=== PATIENT | male | born 1965 | race Caucasian/White ===

== ENCOUNTER 2016-10-24 04:43 | Emergency (ER) | payer BC ==
[~2016-10-24] VITALS: Ht 177.8 cm; Wt 95.5 kg
[2016-10-24 04:50] VITALS: TEMP 36.5; Ht 177.8 cm; Wt 95.5 kg
[2016-10-24] MEDS ORDERED: MoRPHine SULFATE 4 MG/ML 1 ML CARP\\VIAL IV STA ×2 (04:53→05:36)
[2016-10-24] MEDS ORDERED: ONDANSETRON INJ 2 MG/ML 2 ML VIAL IV STA (04:53)
--- NOTE | 2016-10-24 05:00 | EMERGENCY ROOM VISIT NOTE ---
History Report prepared by Karoline: Jennifer Pratt Under the Supervision of: Dr. Jean Marie M.D. First contact with patient: 04:49 Chief Complaint: SHOULDER DISLOCATION Stated Complaint: LEFT SHOULDER PAIN,POSSIBLE DISLOCATION History of Present Illness The patient is a 51 year old male who presents to the Emergency Room with complaints of persistent left shoulder pain that began around 0400. He currently rates his discomfort as a 10/10 in severity. The patient states that this morning he slipped on the stairs and jammed his left shoulder forward. He denies any previous injury to his left shoulder. The patient denies hitting his head. He denies any neck pain, chest pain, abdominal pain, back pain, or shortness of breath. The patient denies any other medical problems. Source of History: patient, spouse/significant other Onset: 0400 Position: shoulder (left) Symptom Intensity: 10/10 Timing: other (persistent) Associated Symptoms: No SOB, No abdominal pain, No back pain, No chest pain , No neck pain Review of Systems See HPI for pertinent positives & negatives. A total of 10 systems reviewed and were otherwise negative. Past Medical & Surgical Surgical Problems: (1) S/P ACL repair Old medical records were reviewed. Nurse's notes were reviewed and I agree with. Family History FH: heart disease FHx: cancer Social History Smokeless Tobacco Use: Yes Alcohol Use: occasionally Marital Status: Housing Status: lives with family Occupation Status: employed Current/Historical Medications Scheduled PRN Oxycodone Immediate Rel Tab (Roxicodone Ir), 1-2 TAB PO Q4H PRN for Severe Pain Allergies Coded Allergies: No Known Allergies (Unverified , 10/24/16) Physical Exam Vital Signs Date Time Temp Pulse Resp B/P Pulse Ox O2 Delivery O2 Flow Rate FiO2 10/24/16 06:18 65 20 141/81 97 10/24/16 05:22 65 20 123/69 97 Room Air 10/24/16 04:50 36.5 68 20 131/85 98 Room Air Physical Exam General: Well developed well nourished, uncomfortable appearing middle aged male complaining of shoulder pain, breathing comfortably on room air. Normal speech HEENT: Normal cephalic atraumatic. Pupils are equal round and reactive to light. Extraocular movements are intact. Oropharynx is pink with moist mucous membranes. No swelling of the mouth lips or tongue. Neck: Supple with a midline trachea. No meningeal signs or stiffness, no JVD or bruits. No Stridor. Chest: Clear to auscultation bilaterally. No wheezes or rhonchi. No increased work of breathing. Heart: regular rate and rhythm. Abdomen: Soft nontender, nondistended without rebound guarding or rigidity. Extremities: Left shoulder is anteriorly dislocated. 2+ distal pulses in the upper extremities. Normal motor and sensation with limited range of motion of left shoulder. No cyanosis clubbing or edema. No calf tenderness or assymetry Spine/Back. Non tender to palpation. No CVA tenderness Skin: Good turgor without rashes. Neurologic exam: Cranial nerves two through 12 are intact. Motor and sensation are intact and symmetrical throughout. Medical Decision & Procedures ER Provider Diagnostic Interpretation: Left shoulder x-ray per my interpretation reveals anterior shoulder dislocation no fracture. Post reduction left shoulder x-ray: no fracture, dislocation has been reduced. There may be a joint effusion, as head is low lying. Medications Administered Medications (Trade) Dose Ordered Sig/Drake Route Start Time Stop Time Status Last Admin Dose Admin Morphine Sulfate (MoRPHine SULFATE INJ) 4 mg NOW STAT IV 10/24/16 04:53 10/24/16 04:55 DC 10/24/16 05:00 4 MG Ondansetron HCl (Zofran Inj) 4 mg NOW STAT IV 10/24/16 04:53 10/24/16 04:55 DC 10/24/16 04:59 4 MG Miscellaneous Information (Nursing Verbal Med Order) 1 ea ONE ONCE N/A 10/24/16 05:30 10/24/16 05:31 DC 10/24/16 05:16 1 EA Procedure Anterior Shoulder Dislocation Reduction Indication: anterior shoulder dislocation Verbal consent obtained. Risks and benefits were explained with the usual customary discussion. A time out was taken. Neurovascular examination before the procedure revealed intact. The left shoulder glenohumeral dislocation was reduced by placing the patient prone and applying gentle downward inline traction on the humerus, with the elbow flexed at 90 degrees, while scapula manipulation was applied. This resulted in an easy reduction without complication. Neurovascular examination after the procedure revealed intact, specifically axillary nerve distribution was intact. The patient had significant pain relief and tolerated the procedure well. ED Course 0450: Past medical records reviewed. The patient was evaluated in room A2, and a complete history and physical examination were performed. 0453: Ordered Zofran Inj 4 mg IV, Morphine Sulfate 4 mg IV. 0512: I reduced the patients shoulder at this time. See procedure note for further detail. 0536: Ordered Morphine Sulfate 4 mg IV. 0601: I reevaluated the patient and he is feeling better. I discussed the exam findings with him and I discussed the treatment plan. He verbalized complete understanding and agreement. He is ready to go home. Medical Decision Differentials include, but are not limited to; shoulder dislocation, fracture, musculoskeletal. This patient comes in as described above he injured his left shoulder and clinically has an anterior shoulder dislocation. He is neurologically neurovascular intact it is limitation secondary to dislocation. IV access was established and the opposite arm. He was given morphine 4 mg IV and Zofran 4 mg IV. He did require additional morphine 4 mg IV. He was gently reduce as outlined above using the Buchanan technique. The patient tolerated this well without difficulties or complications. a sling was placed after reduction and shoulder was square and clinically relocated. He was neurovascularly neurologically intact in particular the axillary nerve distribution. He will use ibuprofen for pain. For breakthrough pain, use OxyIR 5 mg, one or 2 pills every 4 hours as needed. He was warned that this can make him drowsy and do not take before drinking, driving, working. Follow-up with orthopedist this week for recheck return if : increasing pain, worsening symptoms, any new problems concerns. The patient was happy the plan and discharged home with his driving. Impression Primary Impression: Anterior shoulder dislocation Scribe Attestation The scribe's documentation has been prepared under my direction and personally reviewed by me in its entirety. I confirm that the note above accurately reflects all work, treatment, procedures, and medical decision making performed by me. Departure Information Dispostion Home / Self-Care Prescriptions Oxycodone Immediate Rel Tab (ROXICODONE IR) 5 Mg Tab 1-2 TAB PO Q4H Y for Severe Pain, #24 TAB Prov: Jean Marie M.D. 10/24/16 Referrals No Doctor, Assigned (PCP) Forms HOME CARE DOCUMENTATION FORM, IMPORTANT VISIT INFORMATION, WORK / SCHOOL INSTRUCTIONS Patient Instructions My [facility] Additional Instructions Rest. Use sling. Avoid reaching or stretching Ice intermittently. Use ibuprofen 400 mg every 6 hours, take with food For more severe pain, use OxyIR 5 mg, one or 2 pills every 4-6 hours as needed OxyIR may make you drowsy and do not take before drinking, driving, working Return if: Increasing pain, numbness or weakness, fever chills, any new problems or concerns. Follow-up with Dr. Rousseau this week for recheck
[2016-10-24] MEDS ORDERED: NURSING VERBAL MED ORDER ONE (05:30)
[2016-10-24] MEDS ORDERED: OXYC1TAB3 PO (05:55)
[2016-10-24 06:18] VITALS: BP 141/81; PULSE 65; O2SAT 97
--- NOTE | 2016-10-24 06:55 | DIAGNOSTIC IMAGING REPORT ---
SHOULDER MIN 2 VIEWS ROUTINE CLINICAL HISTORY: S/P REDUCTION dislocation COMPARISON: 5:21 AM same date DISCUSSION: Anatomic alignment status post closed reduction There is no evidence for soft tissue swelling. IMPRESSION: Anatomic alignment status post closed reduction Electronically signed by: Bay Smith M.D. 10/24/2016 6:53 AM Dictated Date/Time: 10/24/2016 6:53 AM
--- NOTE | 2016-10-24 07:00 | DIAGNOSTIC IMAGING REPORT ---
SHOULDER 1 VIEW CLINICAL HISTORY: EVAL FOR TRAUMA trauma COMPARISON: None. DISCUSSION: Anterior dislocation. All remaining osseous structures are unremarkable. There is no evidence for soft tissue swelling. IMPRESSION: Anterior dislocation Electronically signed by: Bay Smith M.D. 10/24/2016 6:59 AM Dictated Date/Time: 10/24/2016 6:57 AM
== END 2016-10-24 06:24 | disposition home or self-care (01) ==
LOC: C.EDB 04:45 → C.EDA 06:24
DX: S43.005A Unspecified dislocation of left shoulder joint, initial encounter (principal); W18.40XA Slipping, tripping and stumbling without falling, unspecified, initial encounter; Z98.890 Other specified postprocedural states

== ENCOUNTER 2025-01-28 07:59 | Observation (INO) ==
[2025-01-28] MEDS: MoRPHine SULFATE 10 MG/ML CARP/VIAL IV STA (09:19)
[2025-01-28] MEDS: ONDANSETRON INJ 2 MG/ML 2 ML VIAL IV STA (09:19)
[2025-01-28 09:35] LABS: Basophils # (auto) 0.05 K/uL (0.00-0.20); Basophils % (auto) 0.6 %; Eosinophils # (auto) 0.07 K/uL (0.00-0.50); Eosinophils % (auto) 0.9 %; Hematocrit (blood only) 46.6 % (42.0-52.0); Hemoglobin 15.1 g/dl (14.0-18.0); Immature Granulocytes # (auto) 0.05 K/uL (0.01-0.20); Immature Granulocytes % (auto) 0.6 %; Lymphocytes # (auto) 1.85 K/uL (1.20-3.40); Lymphocytes % (auto) 22.7 %; Mean Corpuscular Hemoglobin 28.2 pg (25.0-34.0); Mean Corpuscular Hgb Conc 32.4 g/dL (32.0-36.0); Mean Corpuscular Volume 86.9 fL (80.0-100.0); Mean Platelet Volume 8.8 fL (9.4-12.4); Monocytes # (auto) 1.02 K/uL (0.11-0.59); Monocytes % (auto) 12.5 %; Neutrophils # (auto) 5.12 K/uL (1.40-6.50); Neutrophils % (auto) 62.7 %; Platelet Count 250 K/uL (130-400); RDW Standard Deviation 44.3 fL (36.4-46.3); Red Blood Count 5.36 M/uL (4.70-6.10); White Blood Count 8.16 K/ul (4.8-10.8)
[2025-01-28] MEDS: MoRPHine SULFATE 4 MG/ML 1 ML CARP\\VIAL IV PRN (09:40)
--- NOTE | 2025-01-28 09:50 | Emergency Department Note ---
Impression & Plan Lower back pain, Sciatica, Lumbar disc herniation, Failure of outpatient treatment ED Provider Note NAME: FARSHAD TRUJILLO Jr AGE: 59 SEX: M : 1965 ARRIVES VIA: Walk-In INFORMANT: [Patient] ED PROVIDER(S): [Rich Levine MD] CHIEF COMPLAINT: Back pain HISTORY OF PRESENT ILLNESS: Patient is a 59-year-old male who states has had 3 weeks of right lower back pain. He was doing PT and muscle relaxers and Percocet as needed--things were okay. Yesterday towards the later part of the day, he thinks he pulled the back again and now, the pain is unbearable and not responding to his typical medications. The pain radiates down his right leg to his foot. He cannot get comfortable in any position. The patient did have an PA a month ago. He is on antiplatelet therapy. He has had no issues with his back previously. PMHx/PSHx/Social Hx: See Below PHYSICAL EXAM: GENERAL: Patient is in moderate distress from pain. HEENT: No acute trauma, normocephalic atraumatic, mucous membranes moist, no nasal congestion. EXTREMITIES: No cyanosis, full range of motion of all the joints without pain or difficulty. NEUROLOGIC: Oriented x 3, no acute motor or sensory deficits, no focal weakness. 2/4 patellar and Achilles reflexes bilaterally. The right great toe strength with dorsiflexion appears weaker compared to the left. SKIN: No jaundice, no diaphoresis. Back: He has soreness to palpate the right lumbar musculature and this muscle region does seem in spasm. No midline discomfort. DIFFERENTIAL DIAGNOSIS: Sprain, strain, nerve impingement, disc herniation, sciatica, fracture, hematoma, among others. EMERGENCY DEPARTMENT PROCEDURES: MEDICAL DECISION MAKING: There is no leukocytosis or concerning anemia. There is a normal platelet count. No renal failure or significant electrolyte abnormality. Lumbar spine MRI does show a disc herniation on the right impinging the exiting nerve root. The level was at L4-L5. On exam, the patient's right big toe dorsiflexion seemed weaker than the left. His reflexes were intact in the right lower extremity. He was very uncomfortable though and had a hard time sitting still. The patient was given IV morphine, IV Toradol, IV Zofran. He was eventually given IV Dilaudid for additional pain control. He received IV Decadron. The patient is somewhat improved compared to when he first arrived but does not feel safe with discharge home. He is already on narcotics outpatient and muscle relaxers outpatient and has not been able to function. I did speak with the patient, I did speak with case management, the on-call hospitalist was consulted. The patient requires admission for pain control, possibly an evaluation by pain management and/or spinal surgery. Prior/Outside records/notes reviewed: None Imaging/x-ray results per my interpretation: Chronic Medical/Social conditions affecting care: Recent PA. Care/Management discussed with: Case management, the on-call hospitalist. Level of care consideration(s): After review of the information above and other included data: --I believe the patient requires escalation of care to admission DISPOSITION: Admission Past Med/Surg History Problem List (Updated 01/28/25 @ 15:23 by Rich Levine MD) Failure of outpatient treatment (Acute) Lumbar disc herniation (Acute) Sciatica (Acute) Lower back pain (Acute) Lumbar disc herniation with radiculopathy Medical History Presence of drug-eluting stent in right coronary artery History of PA (myocardial infarction) Acute right-sided low back pain Degenerative joint disease of left hip Encounter for pre-operative examination Right knee meniscal tear Osteoarthritis History of clenching of mandible Surgical History History of arthroscopy LEFT KNEE X 2 (ACL RECONSTRUCTION) LEFT KNEE HARDWARE REMOVED RT KNEE SCOPE History of herniorrhaphy INGUINAL ( AN ) History of tooth extraction Family History Other No significant family history Social History Smoking Status: Never smoker Tobacco Type: Smokeless Tobacco (Dip or Chew) Second Hand Exposure: No; Do You Dip or Chew Tobacco: Yes (1-2 CANS PER WEEK -- NONE AM DOS, ADVISED); Hx Alcohol Use: Yes Alcohol type: beer Hx Substance Use: No Preferred Language: Bulgarian Communication Ability: Effective [employer] Crm Developer Required: No Beliefs That Will Affect Care: None Current Living Situation: Spouse current occupational status: employed 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 Feels Safe at Home: Yes Assistive Devices: Glasses Allergies Allergies Allergy/AdvReac Type Severity Reaction Status Date / Time orange Allergy Intermediate Any fresh Unverified 01/28/25 11:50 fruit will cause tongue to itch Home Meds Home Medications Medication Instructions Recorded Confirmed acetaminophen 500 mg tablet 1,000 mg PO QID PRN Pain 08/30/20 01/28/25 (Tylenol Extra Strength) aspirin 81 mg tablet,delayed 81 mg PO QAM 01/28/25 01/28/25 release atorvastatin 80 mg tablet 80 mg PO QAM 01/28/25 01/28/25 cyclobenzaprine 10 mg tablet 10 mg PO TID PRN MUSCLE SPASMS 01/28/25 01/28/25 metoprolol succinate 25 mg 12.5 mg PO QAM 01/28/25 01/28/25 tablet,extended release 24 hr oxycodone-acetaminophen 5 mg-325 1 tab PO Q8H PRN Pain 01/28/25 01/28/25 mg tablet prednisone 10 mg tablet See Rx Instructions .Route .COMPLEX 01/28/25 01/28/25 ticagrelor 90 mg tablet 90 mg PO BID 01/28/25 01/28/25 Results & Data (ED) Vital Signs Vital Signs - 24 hr 01/28/25 08:03 01/28/25 11:47 01/28/25 13:00 Temperature 36.7 C Temperature Source Temporal Artery Scan Pulse Rate 88 Pulse Rate [Right Brachial] 74 75 Pulse Rhythm [Right Brachial] Regular Regular Pulse Strength [Right Brachial] Normal Normal Respiratory Rate 20 16 18 Respiratory Effort / Characteristics Non-Labored Spontaneous Non-Labored Non-Labored Respiratory Depth Normal Normal Normal Respiratory Pattern Regular Regular Blood Pressure 139/77 Blood Pressure [Right Arm] 141/92 H 133/90 Blood Pressure Mean 97 Blood Pressure Mean [Right Arm] 108 104 Blood Pressure Position [Right Arm] Lying Lying Pulse Oximetry 97 92 93 Oxygen Delivery Method Room Air Room Air Room Air Sepsis Recent Fever Within 48 Hours No Sepsis New/Unexplained Change in Mental Status No Sepsis Action Taken by Nursing No Action Required Home Medications Current Medication List: was personally reviewed by me Laboratory Data Attestation: I reviewed the patient's lab results. 01/28/25 09:15 01/28/25 09:15 Lab Results 01/28/25 Range/Units 09:15 WBC 8.16 (4.8-10.8) K/ul RBC 5.36 (4.70-6.10) M/uL Hgb 15.1 (14.0-18.0) g/dl Hct 46.6 (42.0-52.0) % MCV 86.9 (80.0-100.0) fL MCH 28.2 (25.0-34.0) pg MCHC 32.4 (32.0-36.0) g/dL RDW Std Deviation 44.3 (36.4-46.3) fL RDW Coeff of Catina 14.0 (11.5-14.5) % Plt Count 250 (130-400) K/uL MPV 8.8 L (9.4-12.4) fL Immature Gran % (Auto) 0.6 % Neut % (Auto) 62.7 % Lymph % (Auto) 22.7 % [place] % (Auto) 12.5 % Eos % (Auto) 0.9 % Baso % (Auto) 0.6 % Neut # (Auto) 5.12 (1.40-6.50) K/uL Lymph # (Auto) 1.85 (1.20-3.40) K/uL [place] # (Auto) 1.02 H (0.11-0.59) K/uL Eos # (Auto) 0.07 (0.00-0.50) K/uL Baso # (Auto) 0.05 (0.00-0.20) K/uL Immature Gran # (Auto) 0.05 (0.01-0.20) K/uL Sodium 137 (136-145) mmol/L Potassium 4.5 (3.5-5.1) mmol/L Chloride 103 (98-107) mmol/L Carbon Dioxide 28 (21-32) mmol/L Anion Gap 6 (3-11) BUN 21 (6-23) mg/dl Creatinine 0.85 (0.6-1.4) mg/dl Est Cr Clr Drug Dosing Not Reportable eGFR 99.48 BUN/Creatinine Ratio 24.7 H (10-20) Glucose 101 H (70-99(Fasting)) mg/dl Calcium 9.3 (8.6-10.3) mg/dl Administered Medications Morphine Sulfate (Morphine Sulfate 4 Mg/Ml 1 Ml Carp\Vial) 4 mg IV Q15M PRN PRN Reason: Pain Stop: 02/11/25 09:09 Last Admin: 01/28/25 09:40 Dose: 4 mg Documented By: HYACINTH Discontinued Medications Dexamethasone Sodium Phosphate (DexamethasonePf 10 Mg/Ml Vial) 10 mg IV NOW ONE Stop: 01/28/25 13:10 Last Admin: 01/28/25 13:41 Dose: 10 mg Documented By: HEENA Gadobutrol (Gadobutrol 65ml Vial) 8.5 ml IV ONCE ONE Stop: 01/28/25 12:16 Last Admin: 01/28/25 12:16 Dose: 8.5 ml Documented By: TETE Hydromorphone HCl (Hydromorphone Inj 1 Mg/Ml Syringe) 1 mg IV NOW STA Stop: 01/28/25 10:51 Last Admin: 01/28/25 11:07 Dose: 1 mg Documented By: HEENA Hydromorphone HCl (Hydromorphone Inj 0.5 Mg/0.5 Ml Syr) 0.5 mg IV NOW STA Stop: 01/28/25 13:10 Last Admin: 01/28/25 13:41 Dose: 0.5 mg Documented By: HEENA Ketorolac Tromethamine (Ketorolac Tromethamine 15 Mg/Ml Vial) 15 mg IV NOW STA Stop: 01/28/25 10:52 Last Admin: 01/28/25 11:06 Dose: 15 mg Documented By: HEENA Morphine Sulfate (Morphine Sulfate 10 Mg/Ml Carp/Vial) 6 mg IV NOW STA Stop: 01/28/25 09:11 Last Admin: 01/28/25 09:19 Dose: 6 mg Documented By: HYACINTH Ondansetron HCl (Ondansetron Inj 2 Mg/Ml 2 Ml Vial) 4 mg IV NOW STA Stop: 01/28/25 09:12 Last Admin: 01/28/25 09:19 Dose: 4 mg Documented By: HYACINTH Imaging Data Radiologist's Impression: Lumbar Spine MRI 01/28/25 09:10 MR lumbar spine wo/w con CLINICAL HISTORY: right back pain, down leg, thinners. COMPARISON: X-ray of 01/15/2025 TECHNIQUE: Multiplanar, multi sequence MRI of the lumbar spine was performed without intravenous contrast. FINDINGS: Conus medullaris terminates normally at L1. No fracture or subluxation. There is diffuse degenerative disc disease and lower lumbar facet and ligamentum flavum hypertrophy. L1-2: No significant disc bulge or central canal or neural foraminal narrowing seen. L2-3: There is a mild disc bulge and mild ligamentum flavum and facet hypertrophy. The disc bulge mildly effaces the left lateral recess without significant central canal narrowing. No significant neural foraminal narrowing. L3-4: There is a mild right paracentral disc bulge which mildly effaces the right lateral recess. No significant central canal narrowing otherwise. There is no significant neural foraminal narrowing. L4-5: There is a right lateral foraminal disc bulge/extrusion which likely causes mass effect on the exiting right nerve root at that level. There is some mild adjacent likely inflammatory enhancement. There is moderate right neural foraminal narrowing. No significant central canal narrowing or left neural foraminal narrowing. L5-S1: There is a mild right paracentral disc bulge which mildly effaces the right lateral recess. No significant central canal narrowing otherwise. No significant neural foraminal narrowing. No other abnormal enhancement seen. No epidural mass or hematoma. IMPRESSION: 1. L4-5 lateral right foraminal disc bulge/extrusion likely causes mass effect on the exiting right nerve root at that level. 2. Lumbar degenerative findings as described. ACT 112: Negative or not required by law. The above report was generated using voice recognition software. It may contain grammatical, syntax or spelling errors. Electronically signed by: Manuel Altamirano M.D. 01/28/2025 12:38 PM Discharge Plan Visit Data Chief Complaint: Back Injury/Pain Stated Complaint: EXTREME PAIN FORM BACK INJURY ED Provider: Rich Levine Discharge Problem: Lower back pain, Sciatica, Lumbar disc herniation, Failure of outpatient treatment Patient Disposition: Admitted As Inpatient Condition: Fair Forms Stand Alone Forms: [email or web address] Prescriptions Prescriptions: No Action acetaminophen [Tylenol Extra Strength] 500 mg Tablet 1,000 mg PO QID PRN (Reason: Pain) cyclobenzaprine 10 mg tablet 10 mg PO TID PRN (Reason: MUSCLE SPASMS) atorvastatin 80 mg tablet 80 mg PO QAM prednisone 10 mg tablet See Rx Instructions .ROUTE .COMPLEX Rx Instructions: Start Date 01/20/25 x10 day supply: TAKE 50mg by mouth once daily x 2 DAYS, 40mg x 2 days, 30mg x 2 days, 20mg x 2 days, then 10mg x 2 days aspirin 81 mg Tablet,Delayed Release (Dr/Ec) 81 mg PO QAM oxycodone-acetaminophen 5-325 mg tablet 1 tab PO Q8H PRN (Reason: Pain) metoprolol succinate 25 mg tablet extended release 24 hr 12.5 mg PO QAM ticagrelor 90 mg tablet 90 mg PO BID Referrals Referrals: Nic Magdaleno MD [Primary Care Provider] - Discharge Problem: Lower back pain Qualifiers: Chronicity: unspecified Back pain laterality: right Sciatica presence: with sciatica Sciatica laterality: sciatica of right side Qualified Code(s): M54.41 - Lumbago with sciatica, right side Sciatica Qualifiers: Laterality: right Qualified Code(s): M54.31 - Sciatica, right side
[2025-01-28 09:51] LABS: Anion Gap 6 (3-11); BUN Creatinine Ratio 24.7 (10-20); Blood Urea Nitrogen 21 mg/dl (6-23); Calcium 9.3 mg/dl (8.6-10.3); Carbon Dioxide 28 mmol/L (21-32); Chloride 103 mmol/L (98-107); Glucose 101 mg/dl (70-99(Fasting)); Potassium 4.5 mmol/L (3.5-5.1); Sodium 137 mmol/L (136-145)
[2025-01-28] MEDS: KETOROLAC TROMETHAMINE 15 MG/ML VIAL IV STA (11:06)
[2025-01-28] MEDS: HYDROmorphone INJ 1 MG/ML SYRINGE IV STA (11:07)
[2025-01-28] MEDS: GADOBUTROL 65ML VIAL IV ONE (12:16)
--- NOTE | 2025-01-28 12:41 | Magnetic Resonance Report ---
MR lumbar spine wo/w con CLINICAL HISTORY: right back pain, down leg, thinners. COMPARISON: X-ray of 01/15/2025 TECHNIQUE: Multiplanar, multi sequence MRI of the lumbar spine was performed without intravenous cont rast. FINDINGS: Conus medullaris terminates normally at L1. No fracture or subluxation. There is diffuse de generative disc disease and lower lumbar facet and ligamentum flavum hypertrophy. L1-2: No significant disc bulge or central canal or neural foraminal narrowing seen. L2-3: There is a mild disc bulge and mild ligamentum flavum and facet hypertrophy. The disc bulge mil dly effaces the left lateral recess without significant central canal narrowing. No significant neura l foraminal narrowing. L3-4: There is a mild right paracentral disc bulge which mildly effaces the right lateral recess. No significant central canal narrowing otherwise. There is no significant neural foraminal narrowing. L4-5: There is a right lateral foraminal disc bulge/extrusion which likely causes mass effect on the exiting right nerve root at that level. There is some mild adjacent likely inflammatory enhancement. There is moderate right neural foraminal narrowing. No significant central canal narrowing or left ne ural foraminal narrowing. L5-S1: There is a mild right paracentral disc bulge which mildly effaces the right lateral recess. No significant central canal narrowing otherwise. No significant neural foraminal narrowing. No other abnormal enhancement seen. No epidural mass or hematoma. IMPRESSION: 1. L4-5 lateral right foraminal disc bulge/extrusion likely causes mass effect on the exiting right n erve root at that level. 2. Lumbar degenerative findings as described. ACT 112: Negative or not required by law. The above report was generated using voice recognition software. It may contain grammatical, syntax o r spelling errors. Electronically signed by: Manuel Altamirano M.D. 01/28/2025 12:38 PM
--- NOTE | 2025-01-28 13:39 | History & Physical Report ---
Date of Service January 28, 2025 Assessment & Plan (1) Lumbar disc herniation with radiculopathy: (2) History of VT (myocardial infarction): (3) Presence of drug-eluting stent in right coronary artery: Plan 59 year old male with PMH significant for bicuspid aortic valve, generalized osteoarthritis, and recent VT s/p stent placement in distal RCA (December 2024) who presents to the ED on 01/28/2025 with worsening back pain. Lumbar disc herniation with radiculopathy Initial injury 3 weeks ago while lifting and acute worsening overnight due to leg cramping Lumbar MRI revealed L4-5 lateral right foraminal disc bulge/extrusion likely causes mass effect on the exiting right nerve root at that level Received decadron and opioids in the ED with some relief Patient is not interested in surgery at this time Discussed with pain management who would only consider a steroid injection when he is safely off DAPT Will manage conservatively with lidocaine patch, IV tylenol, IV dilaudid, medrol dose pack (and PPI), and trial of gabapentin Follow up with pain management outpatient Recent VT s/p SJ in RCA Continue Brilinta, baby aspirin, metoprolol, atorvastatin DVT Prophylaxis: SCDs Code Status: FULL CODE - As per discussion at bedside with the patient. PCP: Nic Magdaleno Disposition: admit to med surg Patient seen in collaboration with Dr Vargas. Please see addendum. I spent a total of 60 minutes coordinating, documenting and providing care for this patient excluding time spent in the performance of separately billed services or time spent by another provider/QHP. Admission and Anticipated Discharge Date Admission Date: 01/28/2025 History of Present Illness Chief Complaint: back pain Primary Care Provider: Nic Magdaleno MD 59 year old male with PMH significant for bicuspid aortic valve, generalized osteoarthritis, and recent VT s/p stent placement in distal RCA (December 2024) who presents to the ED on 01/28/2025 with worsening back pain. Patient reports he injured his back approximately 3 weeks ago while doing some heavy lifting. He notes pain in his right buttocks and hip with radiculopathy down his right leg into his toes. He reports he was able to see a chiropractor, which helped for a few days. The pain progressively worsened until he was using crutches to ambulate because he had such significant right leg burning pain, which prompted him to seek evaluation in our ED on 01/16/2025. He was discharged on oxycodone, cyclobenzaprine, and prednisone. He had minimal improvement on these medications, which prompted him to see his PCP on 01/20/2025 who prescribed PT, percocet, and more prednisone and cyclobenzaprine. Shawna was able to attend one PT session and was feeling better until last night. Around 0300 he reports he had a leg cramp which caused his back to go out and debilitating pain. His notes he was extremely diaphoretic. He returned to our ED today because of this acute worsening of his ongoing back pain. He reports he is feeling better and pain is currently 6/10. He denies fevers, chills, chest pain, SOB, abdominal pain, N/V/D, dysuria, incontinence. Notes weakness related to the burning right leg pain for which he is using crutches. Allergies Allergy/AdvReac Type Severity Reaction Status Date / Time orange Allergy Intermediate Any fresh Unverified 01/28/25 11:50 fruit will cause tongue to itch Home Medications Medication Instructions Recorded Confirmed Type acetaminophen 500 mg tablet 1,000 mg PO QID PRN Pain 08/30/20 01/28/25 History (Tylenol Extra Strength) aspirin 81 mg tablet,delayed 81 mg PO QAM 01/28/25 01/28/25 History release atorvastatin 80 mg tablet 80 mg PO QAM 01/28/25 01/28/25 History cyclobenzaprine 10 mg tablet 10 mg PO TID PRN MUSCLE SPASMS 01/28/25 01/28/25 History metoprolol succinate 25 mg 12.5 mg PO QAM 01/28/25 01/28/25 History tablet,extended release 24 hr oxycodone-acetaminophen 5 mg-325 1 tab PO Q8H PRN Pain 01/28/25 01/28/25 History mg tablet prednisone 10 mg tablet See Rx Instructions .Route .COMPLEX 01/28/25 01/28/25 History ticagrelor 90 mg tablet 90 mg PO BID 01/28/25 01/28/25 History Past Med/Surg History Problem List (Updated 01/28/25 @ 15:23 by Rich Levine MD) Failure of outpatient treatment (Acute) Lumbar disc herniation (Acute) Sciatica (Acute) Lower back pain (Acute) Lumbar disc herniation with radiculopathy Medical History Presence of drug-eluting stent in right coronary artery History of VT (myocardial infarction) Acute right-sided low back pain Degenerative joint disease of left hip Encounter for pre-operative examination Right knee meniscal tear Osteoarthritis History of clenching of mandible Surgical History History of arthroscopy LEFT KNEE X 2 (ACL RECONSTRUCTION) LEFT KNEE HARDWARE REMOVED RT KNEE SCOPE History of herniorrhaphy INGUINAL ( AN ) History of tooth extraction Family History Other No significant family history Social History Smoking Status: Never smoker Tobacco Type: Smokeless Tobacco (Dip or Chew) Second Hand Exposure: No; Do You Dip or Chew Tobacco: Yes (1-2 CANS PER WEEK -- NONE AM DOS, ADVISED); Hx Alcohol Use: Yes Alcohol type: beer Hx Substance Use: No Preferred Language: Lao Communication Ability: Effective Carrier Driver Required: No Beliefs That Will Affect Care: None Current Living Situation: Spouse current occupational status: employed 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 Feels Safe at Home: Yes Assistive Devices: Glasses Review of Systems Review of Systems: All systems reviewed & are unremarkable except as noted in HPI & below Physical Exam Physical Exam: General/Psych: WD/WN, sitting up in bed, NAD, conversing easily Head: normocephalic, atraumatic Eyes: normal inspection, PERRL, conjunctivae pink, anicteric sclerae ENT: external ear and nose normal, oropharynx normal Neck: normal visual inspection, trachea midline, Respiratory: normal respiratory effort, lungs clear to auscultation, no wheeze/rales/rhonchi, no accessory muscle use Cardiovascular: regular rate and rhythm, no murmur/rub/gallop Extremities: no cyanosis or clubbing, normal peripheral pulses, no BLE edema Abdomen/GI: normal bowel sounds, soft, nontender Neurologic/MSK: A+Ox3, motor strength 5/5, moves all extremities, BLE sensation intact, negative straight leg test Skin: no rashes, normal color, warm and dry Results & Data Results & Data Vital Signs (Past 12 Hours) Vital Signs Temp Pulse Pulse Resp BP BP Pulse Ox 01/28/25 13:00 75 18 133/90 93 01/28/25 11:47 74 16 141/92 H 92 01/28/25 08:03 36.7 C 88 20 139/77 97 O2 Del Method 01/28/25 13:00 Room Air 01/28/25 11:47 Room Air 01/28/25 08:03 Room Air Laboratory Results Short CBC 01/28/25 Range/Units 09:15 WBC 8.16 (4.8-10.8) K/ul Hgb 15.1 (14.0-18.0) g/dl Hct 46.6 (42.0-52.0) % Plt Count 250 (130-400) K/uL BMP 01/28/25 09:15 Sodium 137 Potassium 4.5 Chloride 103 Carbon Dioxide 28 BUN 21 Creatinine 0.85 Glucose 101 H Calcium 9.3 I have independently reviewed and interpreted patient's admitting labs including CBC and BMP. Diagnostic Findings Lumbar Spine MRI 01/28/25 09:10 MR lumbar spine wo/w con CLINICAL HISTORY: right back pain, down leg, thinners. COMPARISON: X-ray of 01/15/2025 TECHNIQUE: Multiplanar, multi sequence MRI of the lumbar spine was performed without intravenous contrast. FINDINGS: Conus medullaris terminates normally at L1. No fracture or subluxation. There is diffuse degenerative disc disease and lower lumbar facet and ligamentum flavum hypertrophy. L1-2: No significant disc bulge or central canal or neural foraminal narrowing seen. L2-3: There is a mild disc bulge and mild ligamentum flavum and facet hypertrophy. The disc bulge mildly effaces the left lateral recess without significant central canal narrowing. No significant neural foraminal narrowing. L3-4: There is a mild right paracentral disc bulge which mildly effaces the right lateral recess. No significant central canal narrowing otherwise. There is no significant neural foraminal narrowing. L4-5: There is a right lateral foraminal disc bulge/extrusion which likely causes mass effect on the exiting right nerve root at that level. There is some mild adjacent likely inflammatory enhancement. There is moderate right neural foraminal narrowing. No significant central canal narrowing or left neural foraminal narrowing. L5-S1: There is a mild right paracentral disc bulge which mildly effaces the right lateral recess. No significant central canal narrowing otherwise. No significant neural foraminal narrowing. No other abnormal enhancement seen. No epidural mass or hematoma. IMPRESSION: 1. L4-5 lateral right foraminal disc bulge/extrusion likely causes mass effect on the exiting right nerve root at that level. 2. Lumbar degenerative findings as described. ACT 112: Negative or not required by law. The above report was generated using voice recognition software. It may contain grammatical, syntax or spelling errors. Electronically signed by: Manuel Altamirano M.D. 01/28/2025 12:38 PM Code Status & VTE Plan Code Status Full Code Supervising Physician Co-Signing Physician Notes 59-year-old male with PMH of bicuspid aortic valve, recent VT status post stent placement in distal RCA December 2024 on DAPT presents to the ED with worsening low back pain and shooting pain down his RLE anteriorly. Patient reports lifting heavy about 3 weeks ago that was when his back started as a stiff and then progressing to pain, visited chiropractor which made him feel better for 1 to 2 days then again pain started worsening needing crutches to move around, patient was using Tylenol for pain management. He presented to our ED about 10 days ago, started on oxycodone/steroids/relaxant and then followed up with PCP who continued about the same medication and referred him for PT. Last night, he was stretching his left leg when he felt he pulled something in his back and his back pain started to worsen again. Patient denies any bowel or bladder incontinence, febrile illness, nausea or vomiting. Patient reports numbness along the anterior thigh and anterior leg. Labs and imaging reviewed. WBC and renal function fairly WNL. MRI with L4-5 lateral right foraminal disc bulge causing mass effect on the L5 nerve root. Acute exacerbation of chronic back pain/lumbar radiculopathy: pain management with IV Dilaudid, oxycodone, Solu-Medrol [use PPI], use bowel regimen. Pain management consult. PT consult. On exam: Patient on room air, nontender spinous process. SLRT positive RLE. Rest of the examination as above. Total time spent independently: 23 minutes. I have seen and examined the patient and have discussed the case with the provider above. I agree with the assessment and plan as stated.
[2025-01-28] MEDS: dexAMETHasone**PF** 10 MG/ML VIAL IV ONE (13:41)
[2025-01-28] MEDS: HYDROmorphone INJ 0.5 MG/0.5 ML SYR IV STA (13:41)
[2025-01-28] MEDS ORDERED: ACETAMINOPHEN 1,000 MG/100 ML VIAL IV PRN (14:41)
[2025-01-28] MEDS ORDERED: HYDROmorphone INJ 0.5 MG/0.5 ML SYR IV PRN ×2 (14:41)
[2025-01-28] MEDS: LIDOCAINE 5% 1 PATCH TD STA (16:03)
[2025-01-28] MEDS ORDERED: ONDANSETRON INJ 2 MG/ML 2 ML VIAL IV PRN (16:52)
[2025-01-28] MEDS: GABAPENTIN 100 MG CAP PO SCH (19:46)
[2025-01-28] MEDS: TICAGRELOR 90 MG TAB PO SCH (19:48)
[2025-01-29] MEDS: methylPREDNISolone 4 MG TAB PO SCH ×2 (06:12→13:30)
[2025-01-29 07:56] VITALS: RESP 16
[2025-01-29] MEDS ORDERED: Patient's ALLERGY Info needs ENTERED STA (08:06)
[2025-01-29] MEDS: ATORVASTATIN 40 MG TAB PO SCH (08:15)
[2025-01-29] MEDS: ASPIRIN 81 MG ECTAB PO SCH (08:15)
[2025-01-29] MEDS: METOPROLOL SUCC 25MG EXT REL TAB PO SCH (08:15)
[2025-01-29] MEDS: PANTOprazole 40 MG TAB PO SCH (08:15)
[2025-01-29] MEDS: traMADol HCL 50 MG TABLET PO PRN (08:25)
[2025-01-29] MEDS ORDERED: methylPREDNISolone 4 MG TAB, 6 DAY TAPER PO SCH (09:00)
[2025-01-29] MEDS: GABAPENTIN 100 MG CAP PO STA (09:55)
[2025-01-29] MEDS ORDERED: METHOCARBAMOL 500 MG TABLET PO PRN (13:03)
[2025-01-29] MEDS: METHOCARBAMOL 500 MG TABLET PO STA (13:29)
[2025-01-29] MEDS: GABAPENTIN 300 MG CAP PO SCH (13:29)
[2025-01-29 15:32] VITALS: BP 142/89; PULSE 88; TEMP 98.1; O2SAT 97
--- NOTE | 2025-01-29 16:44 | Discharge Summary ---
Discharge Summary Date of Service January 29, 2025 Principal Dx & Hospital Course #1 = Principal Diagnosis (1) Lumbar disc herniation with radiculopathy: (2) History of NM (myocardial infarction): (3) Presence of drug-eluting stent in right coronary artery: Plan Mr. De Dios is a 59 year old male with PMH significant for bicuspid aortic valve, generalized osteoarthritis, and recent NM s/p stent placement in distal RCA (December 2024) who presents to the ED on 01/28/2025 with worsening back pain and found to have herniated disc with RLE radiculopathy. Patient underwent MRI which revealed the followin. L4-5 lateral right foraminal disc bulge/extrusion likely causes mass effect on the exiting right nerve root at that level. 2. Lumbar degenerative findings as described. Patient noted significant improvement with steroids and gabapentin, however, still with noted discomfort when ambulating on RLE, marked by low back discomfort and burning in buttock; however, as day progressed mobility improved. Discussed follow up plan with patient indepth and noted that patient has plan to establish with spine surgeon in February. Patient reports that he is established with outpatient PT and will plan to follow up promptly on discharge. Pain plan discussed and all questions answered at patient's bedside #Lumbar disc herniation with RLE radiculopathy Lumbar MRI revealed L4-5 lateral right foraminal disc bulge/extrusion likely cau ses mass effect on the exiting right nerve root at that level Received decadron and opioids in the ED with some relief Discussed with pain management who would only consider a steroid injection when he is safely off DAPT, however, stent place 12/2024 Plan to continue steroid dose pack continue gabapentin 300mg tid for now tramadol prn (discontinue oxycodone) methocarbamol 500mg q8 hours in favor of flexeril Encouraged gentle mobilization and follow up with PT magnesium supplement recommended for additional leg cramping not to exceed 200mg-300mg elemental daily avoid NSAIDS iso recent NM #Recent NM #Obstructive CAD s/p SJ in RCA Continue Brilinta, baby aspirin, metoprolol, atorvastatin Notes For Next Care Provider Medication Changes From Visit Plan to continue steroid dose pack continue gabapentin 300mg tid for now tramadol prn (discontinue oxycodone) methocarbamol 500mg q8 hours in favor of flexeril Admission HPI Per Admitting Provider 59 year old male with PMH significant for bicuspid aortic valve, generalized osteoarthritis, and recent NM s/p stent placement in distal RCA (December 2024) who presents to the ED on 01/28/2025 with worsening back pain. Patient reports he injured his back approximately 3 weeks ago while doing some heavy lifting. He notes pain in his right buttocks and hip with radiculopathy down his right leg into his toes. He reports he was able to see a chiropractor, which helped for a few days. The pain progressively worsened until he was using crutches to ambulate because he had such significant right leg burning pain, which prompted him to seek evaluation in our ED on 01/16/2025. He was discharged on oxycodone, cyclobenzaprine, and prednisone. He had minimal improvement on these medications, which prompted him to see his PCP on 01/20/2025 who prescribed PT, percocet, and more prednisone and cyclobenzaprine. Shawna was able to attend one PT session and was feeling better until last night. Around 0300 he reports he had a leg cramp which caused his back to go out and debilitating pain. His notes he was extremely diaphoretic. He returned to our ED today because of this acute worsening of his ongoing back pain. He reports he is feeling better and pain is currently 6/10. He denies fevers, chills, chest pain, SOB, abdominal pain, N/V/D, dysuria, incontinence. Notes weakness related to the burning right leg pain for which he is using crutches. Admission Exam Per Admitting Provider General/Psych: WD/WN, sitting up in bed, NAD, conversing easily Head: normocephalic, atraumatic Eyes: normal inspection, PERRL, conjunctivae pink, anicteric sclerae ENT: external ear and nose normal, oropharynx normal Neck: normal visual inspection, trachea midline, Respiratory: normal respiratory effort, lungs clear to auscultation, no wheeze/rales/rhonchi, no accessory muscle use Cardiovascular: regular rate and rhythm, no murmur/rub/gallop Extremities: no cyanosis or clubbing, normal peripheral pulses, no BLE edema Abdomen/GI: normal bowel sounds, soft, nontender Neurologic/MSK: A+Ox3, motor strength 5/5, moves all extremities, BLE sensation intact, negative straight leg test Skin: no rashes, normal color, warm and dry Discharge Exam Constitutional WD/WN, vitals as above Respiratory normal respiratory effort, lungs clear to auscultation Cardiovascular RRR, no murmur, no edema Gastrointestinal (Abdomen) normal bowel sounds, soft, nontender, no hepatosplenomegaly Musculoskeletal moving all extremities equally, ambulating with antalgic gait, predominately on RLE Updated Medication List Medication Instructions Recorded Confirmed Type acetaminophen 500 mg tablet 1,000 mg PO QID PRN Pain 08/30/20 01/28/25 History (Tylenol Extra Strength) aspirin 81 mg tablet,delayed 81 mg PO QAM 01/28/25 01/28/25 History release atorvastatin 80 mg tablet 80 mg PO QAM 01/28/25 01/28/25 History metoprolol succinate 25 mg 12.5 mg PO QAM 01/28/25 01/28/25 History tablet,extended release 24 hr ticagrelor 90 mg tablet 90 mg PO BID 01/28/25 01/28/25 History gabapentin 300 mg capsule 300 mg PO TID 30 days #90 caps 01/29/25 Rx methocarbamol 500 mg tablet 500 mg PO TID PRN muscle spasms 30 01/29/25 Rx days #30 tabs methylprednisolone 4 mg tablet See Rx Instructions .Route 01/29/25 Rx .COMPLEX #18 tabs tramadol 50 mg tablet 50 mg PO Q4H PRN severe pain 01/29/25 Rx (scale score 7-10) #14 tabs Hospital Stay Data Consultations 01/28/25 13:36 ED Decision to Admit Stat 01/28/25 16:52 Consult Pain Management Routine Diagnostic Imagining Performed 01/28/25 09:10 MR lumbar spine wo/w con Stat Pending Results Patient Have Any Pending Studies at Discharge: No Discharge Instructions Given to Patient (Per Discharging Provider) You were admitted for severe back pain with radiculopathy (nerve pain). You underwent MRI which revealed L4-5 lateral right foraminal disc bulge/extrusion, or herniated disc. You were treated with steroids and pain medications. Please continue the following: -Methylprednisolone (steroid dosing taper) for inflammation Day 1 (returning home): Take 4 mg (1 tablet) after dinner and 8 mg (2 tablet) at bedtime Day 2: 4 mg (1 tablet) by mouth before breakfast, after lunch, and after dinner and 8 mg (2 tablet) at bedtime Day 3: 4 mg (1 tablet) by mouth before breakfast, after lunch, after dinner, and at bedtime Day 4: 4 mg (1 tablet) by mouth before breakfast, after lunch, and at bedtime Day 5: 4 mg (1 tablet) by mouth before breakfast and at bedtime Day 6: 4 mg (1 tablet) by mouth before breakfast 18 tablets total -Gabapentin 300mg three times a day scheduled with plans to taper with your PCP in the future as pain is more controlled. -Tramadol 50mg every 4-6hours as needed for severe pain/aching -Methocarbamol 500mg every 8 hours for muscle cramps/spasms Consider magnesium glycinate (200mg-300mg elemental magnesium) for leg cramps. This formulatoin of magnesium has less likelihood of stomach upset/diarrhea. Please continue gentle walking and finding comfortable positions for sitting/walking. Please avcid lifting more than 5lbs or any torsional/rotational activities until cleared by your physical therapist. Please keep appointment with Spine Physician in coming weeks. All other home medications please continue as prescribed, however, please discontinue the Percocet and the flexeril. Total Time Total Time Spent Total Time Spent (In Minutes): 55
[2025-01-30] MEDS ORDERED: methylPREDNISolone 4 MG TAB PO SCH ×2 (07:00→21:00)
[2025-01-31] MEDS ORDERED: methylPREDNISolone 4 MG TAB PO SCH (07:00)
[2025-02-01] MEDS ORDERED: methylPREDNISolone 4 MG TAB PO SCH (07:00)
[2025-02-02] MEDS ORDERED: methylPREDNISolone 4 MG TAB PO SCH (07:00)
[2025-02-03] MEDS ORDERED: methylPREDNISolone 4 MG TAB PO SCH (07:00)
== END 2025-01-29 17:25 | disposition home or self-care (01) ==
LOC: ED 07:59 → 3W 07:59 → SUATTDRO 14:41 → 3W 16:45